=== PATIENT | female | born 1960 | race Caucasian/White ===

== ENCOUNTER 2016-11-28 17:45 | Observation (INO) | payer SELFPAY ==
--- NOTE | ~2016-11-28 | HP ---
History And Physical [place] [address] [facility] [place]. 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 Palencia, whom see saw last two years ago. CHIEF COMPLAINT: Chest pain and pressure. HISTORY OF PRESENT ILLNESS: This is a 56-year-old white female with a complex past medical history, who went to [facility] on Monday for complaints of swelling to her bilateral lower extremities and redness. She reports while she was there, she had an EKG and echo and a chest x-ray done, and they were going to transfer her to [facility], however, the patient did not want to get transferred to [facility] with an ambulance, therefore, she left [place] at that point. The patient then came to our ER yesterday with complaints of chest pain and pressure, 8/10, radiating to her back, sharp in description. She also reports to have had shortness of breath during her event. She denies any nausea, vomiting, diaphoresis, or palpitations. She does report to have bilateral lower extremity swelling and was told that she had "water on her heart." She reports that all of her chest pain symptoms were resolved after nitro patch was administered in the emergency room. Currently, she denies any personal history of myocardial infarction or stroke. The patient denies any recent fever or chills. No palpitations. No syncopal episodes. She denies PND or orthopnea. PAST MEDICAL HISTORY: 1. Hypertension. 2. Hypothyroidism. 3. Shortness of breath. 4. Hemoptysis. 5. Lymphedema. 6. Community-acquired pneumonia. 7. Large pericardial effusion. 8. Tooth abscess. 9. COPD. 10.Right lower lobe Strep viridans pneumonia. 11.Left lower lobe PE. She was on Coumadin until about a year and a half ago when she was taken off. 12.Degenerative disk disease. 13.Anxiety. 14.Nicotine dependence. 15.Problems with medical compliance. 16.Smoking dependency. 17.Pericardial window for early tamponade physiology. PAST SURGICAL HISTORY: 1. Cholecystectomy. 2. Tubal ligation. History And Physical [address] [address] NAME: BAILEE DOWNS : 58 STATUS : ADM Tara PAT#: [id number] AGE: 56 ADM/REG DATE : 11/28/16 MR#: [id number] REPORT SERV DATE: 11/29/16 DICTATED BY: DATE: REPORT STATUS : Draft TRANSCRIBED BY: MODL DATE: 11/29/16 3. Pericardial window for early tamponade physiology. SOCIAL HISTORY: The patient is unemployed. She is and has four children. She smoked one pack per day for 26 years, then cut down to half a pack per day x2 years, which she currently smokes. Denies any alcohol use. Denies any illicit drug use. FAMILY HISTORY: She denies her mother having any cardiac history. Her father, she reports, had an ME at the age of 70 and from it. REVIEW OF SYSTEMS: A 14-point review of systems was performed, significant for HPI. No other contributory diagnosis identified. ALLERGIES: PREDNISONE, REACTION, "GOES CRAZY". HOME MEDICATIONS: 1. Synthroid 175 mcg p.o. every morning. 2. Lisinopril 20 mg p.o. daily. PHYSICAL EXAMINATION: VITAL SIGNS: Blood pressure 144/75, heart rate 73, temperature 98.4, respirations 22, O2 saturation 94% on room air. BMI 43.0. GENERAL: Cooperative, in no apparent distress. HEENT: Head normocephalic, anicteric. Normal EOM. PERRLA. No xanthelasma. Nares patent. Moist mucous membranes. NECK: Trachea midline. No thyromegaly, JVD or bruits. RESPIRATORY: Expiratory wheezes. Cough with a clear thin sputum. Normal respiratory effort. CARDIOVASCULAR: Regular rate and rhythm. No murmur, rub or gallop appreciated. No chest wall tenderness to palpation. ABDOMEN: Soft, nontender, nondistended, normal bowel sounds auscultated throughout. No masses or organomegaly. EXTREMITIES: +1 bilateral lower extremity edema with shiny red appearance from mid calf down. SKIN: Intact. It does not appear warm. No blisters noted. NEURO/PSYCH: Alert, oriented x3 with no acute distress. Affect appropriate to current situation. LABORATORY DATA: Sodium 145, potassium 3.5, chloride 107, BUN 11, creatinine 1.20, GFR 58, glucose 84, calcium 9.0, magnesium 2.2. White blood cells 11.8, hemoglobin 13.7, hematocrit 41.0, platelets 257, INR 1.0. CPK is 374, CK-MB 3.4, troponin 0.10 x2. IMAGING: Chest x-ray done on 11/28/2016 shows stable mild cardiomegaly with no acute process otherwise demonstrated radiographically. Nodule identified in the right lower lobe on CT, it is not well seen on the plain film. The lungs and pleural spaces are clear. CT of the chest, impression shows no CTA evidence of pulmonary embolus. No active pulmonary History And Physical [address] [address] NAME: BAILEE DOWNS : 58 STATUS : ADM Tara PAT#: [id number] AGE: 56 ADM/REG DATE : 11/28/16 MR#: [id number] REPORT SERV DATE: 11/29/16 DICTATED BY: DATE: REPORT STATUS : Draft TRANSCRIBED BY: MODL DATE: 11/29/16 disease. Stable 7.5 mm noncalcified pulmonary nodule in the right lower lobe; with this degree of stability, likely benign. Nonspecific hepatic steatosis pattern. Status post cholecystectomy. The patient does report to have had a biopsy of her lung and was told that her nodule was benign sometime in the past. EKG shows sinus link at [address]-T wave changes. alarm security or surveillance monitor shows sinus link at 57. ASSESSMENT AND PLAN: 1. Substernal chest pain. The patient has been observed in the CPOU to rule out myocardial infarction with serial enzymes and serial EKGs. Troponin had been flat at 0.10 x2. The patient's chest pain has been resolved ever since she received nitro in the emergency department. We will keep the patient n.p.o. for cardiac PET today. BMI is 43.0. If the stress test shows no ischemia or low risk, RN may discharge the patient home, and follow up with PCP in one to two weeks. 2. Productive cough. The patient reports it is chronic. Chest x-ray shows lungs are clear, mild cardiomegaly. We will defer the CTA and the chronic cough to the patient's PCP for further followup and management. 3. Hypertension. Blood pressure is 144/75, appears to be stable. We will continue the home medications and continue to monitor. 4. Tobacco abuse. We have discussed smoking cessation. While in the hospital, the patient will be started on a nicotine patch. 5. Cellulitis to bilateral lower extremities. The patient received Rocephin in the ER and was started on Keflex. We will defer the treatment and management to PCP outpatient, but we will prescribe Keflex to the patient to continue her five days of treatment. 6. Hypothyroidism. The patient is on levothyroxine. We will defer management to PCP. 7. Morbid obesity. BMI is 43.0. We discussed diet and exercise education. Due to the patient having her echo, chest x-ray, and EKGs done at [facility], we will try to get the patient's echo records from there. EKS/MODL Ronald Gordon APN / [id number] CC: Kim Luther, MSN, VICE PRESIDENT [employer]ICAL AFFAIRS- History And Physical [address] [address] NAME: BAILEE DOWNS : 58 STATUS : ADM Tara PAT#: [id number] AGE: 56 ADM/REG DATE : 11/28/16 MR#: [id number] REPORT SERV DATE: 11/29/16 DICTATED BY: DATE: REPORT STATUS : Draft TRANSCRIBED BY: MODL DATE: 11/29/16 ABY LO
[~2016-11-28 17:45] MED LIST: AUG875 PO; COUMADIN6 MG PO; LEVOTHYROXIN175 MCG PO; P20 PO; PCET PO; PROVHFA INH
[2016-11-28 18:01] LABS: BASOPHILS 0.7 %; BASOPHILS ABSOLUTE 0.08 10/3/uL (0.0-0.16); EOSINOPHILS 1.2 %; EOSINOPHILS ABSOLUTE 0.14 10/3/uL (0.0-0.53); HEMOGLOBIN 13.7 g/dL (12.0-16.0); IMMATURE GRANULOCYTES 0.3 %; IMMATURE GRANULOCYTES ABSOLUTE 0.04 10/3/uL (0.0-0.11); LYMPHOCYTES ABSOLUTE 3.06 10/3/uL (0.67-4.30); MEAN CORPUS HGB CONC 33.4 g/dL (32.0-36.0); MEAN CORPUSCULAR HEMOGLOB 32.6 pg (26.0-34.0); MEAN PLATELET VOLUME 9.6 fL (9.2-13.0); MONOCYTES 10.4 %; MONOCYTES ABSOLUTE 1.22 10/3/uL (0.21-1.20); NEUTROPHILS 61.4 %; NEUTROPHILS ABSOLUTE 7.21 10/3/uL (2.02-8.40); PLATELET COUNT 257 10/3/uL (150-400)
[2016-11-28 18:05] LABS: ER CBC TAT 0 Hrs 10 Mins; MANUAL DIFF NO %; MEAN CORPUSCULAR VOLUME 97.6 fL (80-100); WHITE BLOOD CELLS 11.8 10/3/uL (4.5-10.5)
[2016-11-28 18:16] LABS: PARTIAL THROMBO TIME 30.3 SEC (22.5-37.2); PROTIME (NOT ORD) 13.4 SEC (12.0-14.5)
[2016-11-28 18:20] LABS: BUN (BLOOD UREA NITROGEN) 11 MG/DL (6-23); CHEST PAIN PROFILE TAT 0 Hrs 25 Mins; CHLORIDE, SERUM 107 MMOL/L (96-112); CO2 (CARBON DIOXIDE) 29 MMOL/L (24-34); GFR AFRICAN AMERICAN 58 ML/MIN (>=60); GFR NON AFRICAN AMERICAN 50 ML/MIN (>=60); GLUCOSE, SERUM 84 MG/DL (60-99); POTASSIUM, SERUM 3.5 MMOL/L (3.5-5.3); SODIUM, SERUM 145 MMOL/L (135-148)
[2016-11-28 21:45] LABS: CK-MB 3.4 NG/ML; CPK 374 U/L (0-200)
[2016-11-29] MEDS ORDERED: SYNTHROID175 MCG PO (02:33)
[2016-11-29] MEDS ORDERED: PRIN20 PO (02:34)
[2016-11-29] MEDS ORDERED: K500 PO (13:20)
== END 2016-11-29 14:20 | disposition home or self-care (01) ==
LOC: ER 17:45 → CDU1 18:00 → CDU2 11-29 05:52
PROVIDERS: Physician Assistant
DX: R07.2 Precordial pain (principal); R05 Cough; I10 Essential (primary) hypertension; L03.116 Cellulitis of left lower limb; L03.115 Cellulitis of right lower limb; F17.210 Nicotine dependence, cigarettes, uncomplicated; E03.9 Hypothyroidism, unspecified; R04.2 Hemoptysis; I89.0 Lymphedema, not elsewhere classified; J18.8 Other pneumonia, unspecified organism; I31.3 Pericardial effusion (noninflammatory); K04.7 Periapical abscess without sinus; J44.9 Chronic obstructive pulmonary disease, unspecified; J15.4 Pneumonia due to other streptococci; F41.9 Anxiety disorder, unspecified; T88.9XXA Complication of surgical and medical care, unspecified, initial encounter; E66.01 Morbid (severe) obesity due to excess calories; Z68.41 Body mass index [BMI] 40.0-44.9, adult; Z90.49 Acquired absence of other specified parts of digestive tract; Z98.51 Tubal ligation status; Z79.899 Other long term (current) drug therapy
CPT/HCPCS: 71010; 71275; 78492; 80048; 82550; 82553; 83735; 84484; 85025; 85610; 85730; 93005; 93017; 96374; 99285; A9270-GY; A9555; G0378; J2785; Q9967